=== PATIENT | male | born 1970 | race Caucasian/White ===

== ENCOUNTER → 2020-09-26 10:27 | Outpatient (BNVA) | payer BC, SELFPAY | PROVIDERS: Visit Provider Orthopaedic Surgery | DX: M25.511 Pain in right shoulder (principal); M19.011 Primary osteoarthritis, right shoulder | CPT/HCPCS: 73030 ==

== ENCOUNTER 2022-01-25 06:06 | Day surgery (SDC) | payer BC, SELFPAY ==
[2022-01-23 12:00] VITALS: BMI 29.0
[2022-01-25] VITALS (8 sets, daily range): BP systolic 106–130; BP diastolic 75–87; PULSE 80–92; RESP 18–20; TEMP 36.1–36.8; O2SAT 95–99; BMI 29.0
[2022-01-25] MEDS: sodium chloride 0.9% 1,000 ML 30 ML IV (06:40)
[2022-01-25] MEDS: scopolamine 1.5 Patch 1 PATCH TRANSDERMA (06:44)
--- NOTE | 2022-01-25 06:53 | ANES.PREANE2 ---
Pre-Anesthetic Assessment Height/Weight: Height 1.68 m Weight 81.647 kg Temp Pulse Resp BP Pulse Ox 97.1 F L 92 18 130/83 96 01/25/22 06:14 01/25/22 06:14 01/25/22 06:14 01/25/22 06:14 01/25/22 06:14 Preop Diagnosis: Left knee medial meniscal tear Operation Date: 01/25/22 07:50 Proposed Procedures p left Knee Arthroscopywith medial meniscectomy 13308/tear of medial men S83.242A(Left) - Neal Cabrales MD Familial anesthetic complications: none Was Beta Rosalee taken within 24 hours: N/A Was Clonidine taken within 24 hours: N/A Last intake: Intake Last Liquid Date 01/24/22 Last Liquid Time 18:00 Last Solid Date 01/24/22 Last Solid Time 18:00 Social No alcohol and No tobacco Exam alert, oriented x 3, clear to auscultation bilaterally and regular rate & rhythm Airway Mallampati: Class II Dentition: chipped and other (missing) History/ROS No significant history except as noted Anesthetic Plan ASA status: 1 Anesthesia: General Risk of > 500 ml blood loss (7ml/kg in children): No Medications/Allergies Home Medications Medication Instructions Recorded Confirmed Last Taken Type No Known Home Medications 01/23/22 01/23/22 Unknown History Allergies Allergy/AdvReac Type Severity Reaction Status Date / Time No Known Allergies Allergy Verified 01/23/22 11:59 Current Medications Generic Name Dose Route Start Last Admin Trade Name Freq PRN Reason Stop Dose Admin Sodium Chloride 1,000 mls @ 30 mls/hr 01/25/22 06:15 01/25/22 06:40 Sodium Chloride 0.9% IV 01/26/22 06:14 30 mls/hr .Q24H SANJAY Administration PFSH Anesthesia Social History (Updated 09/26/20 @ 10:21 by Jay Ramos LPN) Smoking and tobacco status: never smoked Alcohol intake: current Alcohol intake frequency: holidays/special occasions only Data Anesthesia Cardiac Studies: No Data to Display
--- NOTE | 2022-01-25 08:03 | W.PM.OPSUD ---
Surgery/Procedure H&P Update DATE OF PROCEDURE: January 25, 2022 DATE H&P PERFORMED: 01/16/22 H&P UPDATE INFORMATION: I have reviewed H&P completed within last 30 days PREOP DIAGNOSIS: Left knee medial meniscal tear PLANNED PROCEDURE: Operation Date: 01/25/22 07:50 Proposed Procedures p left Knee Arthroscopywith medial meniscectomy 58917/tear of medial men S83.242A(Left) - Neal Cabrales MD
--- NOTE | 2022-01-25 08:20 | W.PM.OPSUD ---
Surgery/Procedure H&P Update DATE OF PROCEDURE: January 25, 2022 DATE H&P PERFORMED: 01/16/22 H&P UPDATE INFORMATION: I have reviewed H&P completed within last 30 days PREOP DIAGNOSIS: Left knee medial meniscal tear PLANNED PROCEDURE: Operation Date: 01/25/22 07:50 Proposed Procedures p left Knee Arthroscopywith medial meniscectomy 58539/tear of medial men S83.242A(Left) - Neal Cabrales MD
[2022-01-25] MEDS: morphine 4 mg/mL SDV 1 mL 8 MG XX (08:59)
--- NOTE | 2022-01-25 09:11 | P.OP_ITS ---
Operative Report Date of procedure: January 25, 2022 Pre-op diagnosis: Preop Diagnosis Left knee medial meniscal tear Post-op diagnosis: other Post-op diagnosis: Normal left knee arthroscopy Procedure done: Diagnostic arthroscopy left knee Pathology: none sent Surgeon: Neal Cabrales Anesthesia: General Estimated blood loss (mL): 5 Findings: The patient had intact menisci and central stabilizing ligaments. He had no significant chondromalacia Disposition: PACU Brief History: Mr. Juárez is a 51-year-old male who developed pain and popping in his left knee 8 weeks ago when he caught his foot stepping out of his truck. An MRI raise concerns of a medial meniscal tearing. He was taken the operating room for diagnostic arthroscopy and possible medial medicine Procedure: Mr. Juárez was taken to the operating room and given a general anesthesia. He is prepped and draped in the supine position with a tourniquet on the left thigh. The knee was infiltrated with 30 cc of 0.25% Marcaine and 10 mg of m orphine. A timeout was performed. The knee was entered through a standard inferior medial and inferior lateral portal. A diagnostic arthroscopy was performed. The medial meniscus was carefully visualized and probed and found to be free of tearing. No no significant chondromalacia was identified in the medial compartment. The leg was placed in a [id number] position allowing inspection of the lateral compartment similarly revealing a healthy lateral meniscus and no chondromalacia. The patellofemoral compartment suspected. The trochlea was a free of chondromalacia. General softening was seen of the patella but no significant flaps and fissures were identified. The knee was irrigated with saline. Portals were closed with 3-0 Prolene. Sterile dressings were applied. The patient was extubated and taken to recovery in stable condition.
[2022-01-25] MEDS: HYDROcodone-acetaminophen 5-325 mg Tablet 1 TAB PO (09:52)
== END 2022-01-25 10:10 | disposition home or self-care (01) ==
PROVIDERS: Visit Provider Orthopaedic Surgery
PROC: (CPT 29870; principal; 2022-01-25 07:40)
DX: S83.282A Other tear of lateral meniscus, current injury, left knee, initial encounter (principal); X50.1XXA Overexertion from prolonged static or awkward postures, initial encounter
CPT/HCPCS: 29870; J0690; J2250; J2270; J2405; J2704; J3010; J3490; J7030